=== PATIENT | female | born 1970 | race American Indian/Alaskan Native ===

== ENCOUNTER 2017-05-24 17:48 | Emergency (ER) | payer BC ==
[2017-05-24 18:21] VITALS: BP 149/86
--- NOTE | 2017-05-24 19:39 | Emergency Department Report ---
ED Back Pain/Injury HPI - General Chief Complaint: Back Pain/Injury Stated Complaint: sciatca pain Time Seen by Provider: 05/24/17 18:43 Source: patient Mode of arrival: Wheelchair Limitations: No Limitations - History of Present Illness Initial Comments: This is a 46 y.o F, presenting with low back pain, radiating to RLE. Pain started 4 days ago while traveling via airplane. Patient states her back flares up every time she travels. It has been escalating over 4 days. She lives in [place] and followed by PCP there. Driven to ER by friend. She is currently taking prednisone and tizanidine with minimal relief. Admits to mid low back pain, radiating to RLE. It is worse with prolonged sitting or walking and relieved with immobilization. Denies swelling, deformity, discoloration, numbness and tingling. MD Complaint: back pain -: Gradual, days(s) (4 days ago) Similar Symptoms Previously: Yes (Fell 2 yrs ago, low back pain with sciatica since fall.) Place: other (airplane) Radiation: buttocks (left), left leg Severity: severe Severity scale (0 -10): 9 Quality: burning, sharp, aching Consistency: constant Improves With: supine Worsens With: movement, sitting upright, walking Context: other (sitting for long period) Associated Symptoms: denies other symptoms Treatments Prior to Arrival: heat therapy, other medications - Related Data Allergies Allergy/AdvReac Type Severity Reaction Status Date / Time ketorolac tromethamine AdvReac Rash Verified 02/26/14 09:08 [From Toradol] meperidine HCl [From Demerol] AdvReac Rash Verified 02/26/14 09:08 tramadol AdvReac Unknown Verified 02/26/14 09:08 ED Review of Systems ROS: Stated complaint: sciatca pain Other details as noted in HPI Constitutional: no symptoms reported Respiratory: no symptoms reported Cardiovascular: as per HPI Musculoskeletal: back pain (bilateral low back pain, positive left leg raise) Skin: as per HPI. denies: rash, lesions, change in color, change in hair/nails , pruritus Psychiatric: as per HPI. denies: anxiety, depression, auditory hallucinations, visual hallucinations, homicidal thoughts, suicidal thoughts ED Past Medical Hx - Past Medical History Hx Hypertension: Yes Additional medical history: Slipped Disc in back. - Surgical History Past Surgical History?: No Additional Surgical History: Hyst. Left Shoulder Surgery - Family History Family history: cancer (aunt, grandmother breast cancer) - Social History Smoking Status: Never Smoker Substance Use Type: None ED Physical Exam - General Limitations: No Limitations General appearance: alert, in distress - Head Head exam: Present: normal inspection - Respiratory Respiratory exam: Present: normal lung sounds bilaterally. Absent: respiratory distress, wheezes, rales, rhonchi, stridor, chest wall tenderness, accessory muscle use, decreased breath sounds, prolonged expiratory - Cardiovascular Cardiovascular Exam: Present: regular rate, normal rhythm, normal heart sounds. Absent: bradycardia, tachycardia, irregular rhythm, systolic murmur, diastolic murmur, rubs, gallop, clicks - GI/Abdominal GI/Abdominal exam: Present: soft, normal bowel sounds. Absent: distended, tenderness, guarding, rebound, rigid, diminished bowel sounds, hyperactive bowel sounds, hypoactive bowel sounds, organomegaly, mass, bruit, pulsatile mass , hernia - Back Exam Back exam: Present: muscle spasm, other (Palpation of lumbar vertebrae reveals exquisite tenderness. Back range of motion and leg raise tests were not performed due to significant patient discomfort.) - Neurological Exam Neurological exam: Present: alert, oriented X3, CN II-XII intact, normal gait. Absent: altered, abnormal gait, motor sensory deficit, reflexes normal ED Course Vital Signs 05/24/17 05/24/17 18:17 21:11 Temperature 98.9 F Pulse Rate 104 H Respiratory 18 Rate Blood Pressure 149/86 O2 Sat by Pulse 95 Oximetry ED Medical Decision Making - Medical Decision Making Patient refused radiograph and labs, old injury. Continue tizanidine and prednisone. Given dilaudid 0.5 mg, IM. Critical care attestation.: If time is entered above; I have spent that time in minutes in the direct care of this critically ill patient, excluding procedure time. ED Disposition Clinical Impression: Low back pain radiating to left leg Disposition: TO HOME OR SELFCARE Is pt being admited?: No Does the pt Need Aspirin: No Condition: Stable Instructions: Chronic Back Pain (ED) Additional Instructions: F/U with PCP on returning home. Referrals: PRIMARY CARE, [Primary Care Provider] - 3-5 Days RAKESH PENNINGTON MD [Staff Physician] - 3-5 Days Time of Disposition: 21:17 Print Language: AFGHAN
[2017-05-24] MEDS ORDERED: TORADOL IM ONE (19:49)
[2017-05-24] MEDS ORDERED: DILAUDID IM ONE (20:56)
[2017-05-24] MEDS ORDERED: ZOFRAN IM ONE (20:58)
[2017-05-24] MEDS ORDERED: ZOFRAN ODT ONE (21:00)
[2017-05-24] MEDS ORDERED: DILAUDID ONE (21:02)
[2017-05-24] MEDS ORDERED: ZOFRAN ODT PO ONE (21:12)
== END 2017-05-24 21:24 | disposition home or self-care (01) ==
LOC: ED 17:48
DX: M54.5 Low back pain (principal); I10 Essential (primary) hypertension; Z88.6 Allergy status to analgesic agent; Z88.8 Allergy status to other drugs, medicaments and biological substances
CPT/HCPCS: 96372; 99282; J1170; J1885; Q0162

== ENCOUNTER 2021-03-19 12:36 | Emergency (ER) | payer SELFPAY ==
[2021-03-19 12:45] VITALS: BP 147/100
[2021-03-19] MEDS ORDERED: MORPHINE 4 MG/1 ML INJ IM ONE (13:15)
[2021-03-19] MEDS ORDERED: dexAMETHasone 4 MG/ML VIAL IM ONE (13:15)
[2021-03-19] MEDS ORDERED: ONDANSETRON 4 MG ODT TAB PO ONE (13:15)
--- NOTE | 2021-03-19 13:18 | Emergency Department Report ---
ED Back Pain/Injury HPI - General Chief Complaint: Pain General Stated Complaint: LEFT SIDE NERVE PAIN Time Seen by Provider: 03/19/21 13:02 Source: patient Limitations: No Limitations - History of Present Illness Initial Comments: Patient is a 50-year-old female presents emergency room with complaints of an exacerbation of her sciatica that began 3 days ago. She states that she has left lower back pain that radiates down her left leg. She states that this feels similar to her previous exacerbations. She states that she has been taking her Robaxin and Flexeril without much relief. She denies any acute fall or injury. She denies any numbness, weakness, bowel or bladder incontinence, fever, urinary symptoms, vomiting, diarrhea. Patient denies any other past medical history. She has an allergy to Toradol, meperidine, tramadol. She states that she is currently awaiting approval for an epidural shot due to her sciatica. - Related Data Allergies Allergy/AdvReac Type Severity Reaction Status Date / Time ketorolac tromethamine AdvReac Rash Verified 02/26/14 09:08 [From Toradol] meperidine HCl [From Demerol] AdvReac Rash Verified 02/26/14 09:08 tramadol AdvReac Unknown Verified 02/26/14 09:08 ED Review of Systems ROS: Stated complaint: LEFT SIDE NERVE PAIN Other details as noted in HPI Comment: All other systems reviewed and negative ED Past Medical Hx - Past Medical History Hx Hypertension: Yes Additional medical history: Slipped Disc in back. - Surgical History Additional Surgical History: Hyst. Left Shoulder Surgery - Social History Smoking Status: Never Smoker Substance Use Type: None ED Physical Exam - General Limitations: No Limitations General appearance: alert, in no apparent distress - Head Head exam: Present: atraumatic, normocephalic - Eye Eye exam: Present: normal appearance - ENT ENT exam: Present: mucous membranes moist - Neck Neck exam: Present: normal inspection, full ROM. Absent: tenderness, meningismus - Respiratory Respiratory exam: Present: normal lung sounds bilaterally. Absent: respiratory distress, wheezes, rales, rhonchi, stridor, chest wall tenderness, accessory muscle use, decreased breath sounds, prolonged expiratory - Cardiovascular Cardiovascular Exam: Present: regular rate, normal rhythm, normal heart sounds. Absent: systolic murmur, diastolic murmur, rubs, gallop - Back Exam Back exam: Present: normal inspection, full ROM, paraspinal tenderness (left lumbar paraspinal ttp, no midline C-spine, T-spine or L-spine ttp, no step offs, no deformities). Absent: vertebral tenderness - Neurological Exam Neurological exam: Present: alert, oriented X3, CN II-XII intact, normal gait. Absent: motor sensory deficit - Psychiatric Psychiatric exam: Present: normal affect, normal mood - Skin Skin exam: Present: warm, dry, intact ED Course Vital Signs 03/19/21 12:42 Temperature 98.1 F Pulse Rate 105 H Respiratory 20 Rate Blood Pressure 147/100 [Left] O2 Sat by Pulse 100 Oximetry ED Medical Decision Making - Medical Decision Making Patient is a 50-year-old female presents emergency room with complaints of an exacerbation of her sciatica that began 3 days ago. She states that she has left lower back pain that radiates down her left leg. She states that this feels similar to her previous exacerbations. She states that she has been taking her Robaxin and Flexeril without much relief. She denies any acute fall or injury. She denies any numbness, weakness, bowel or bladder incontinence, fever, urinary symptoms, vomiting, diarrhea. Patient denies any other past medical history. She has an allergy to Toradol, meperidine, tramadol. She states that she is currently awaiting approval for an epidural shot due to her sciatica.On exam: left lumbar paraspinal ttp, no midline C-spine, T-spine or L- spine ttp, no step offs, no deformities, no focal neuro deficits. Examination a ppears consistent with sciatica. Patient given medications while in the emergency department as she states she did not drive with improvement of her symptoms. Patient has no red flag warning signs of back pain, no trauma, no unexplained weight loss, no neuro deficits, no saddle numbness, no fever, no IV drug use, no steroid use, no history of cancer. Advised patient Please continue to take your home medications as prescribed by your doctor. Follow-up with a primary care doctor. Follow-up with a neurosurgeon. Return to emergency room for any new or worsening symptoms. Critical care attestation.: If time is entered above; I have spent that time in minutes in the direct care of this critically ill patient, excluding procedure time. ED Disposition Clinical Impression: Low back pain Qualifiers: Chronicity: acute Back pain laterality: left Sciatica presence: with sciatica Sciatica laterality: sciatica of left side Qualified Code(s): M54.42 - Lumbago with sciatica, left side Disposition: 01 HOME / SELF CARE / HOMELESS Is pt being admited?: No Does the pt Need Aspirin: No Condition: Stable Instructions: Sciatica Additional Instructions: Please continue to take your home medications as prescribed by your doctor. Follow-up with a primary care doctor. Follow-up with a neurosurgeon. Return to emergency room for any new or worsening symptoms. Referrals: CHUY MOMIN II, MD [Staff Physician] - 3-5 Days your, primary care doctor [Other] - 3-5 Days Time of Disposition: 13:21 Print Language: [id number]
== END 2021-03-19 15:15 | disposition home or self-care (01) ==
LOC: ED 12:36
DX: M54.50 Low back pain, unspecified (principal); I10 Essential (primary) hypertension; Z98.890 Other specified postprocedural states; Z88.8 Allergy status to other drugs, medicaments and biological substances; Z79.899 Other long term (current) drug therapy
CPT/HCPCS: 96372; 99282; J1100; J2270; Q0162